=== PATIENT | female | born 1995 | race Caucasian/White ===

== ENCOUNTER 2017-05-06 09:29 | Emergency (ER) | payer MEDICAID ==
[~2017-05-06] VITALS: Ht 167.6 cm; Wt 90.9 kg
[2017-05-06 09:31] VITALS: BP 136/93
== END 2017-05-06 10:16 | disposition home or self-care (01) ==
LOC: ED 10:00
DX: H60.92 Unspecified otitis externa, left ear (principal); R09.81 Nasal congestion; R05 Cough
CPT/HCPCS: 99283